=== PATIENT | female | born 2000 | race Caucasian/White ===

== ENCOUNTER 2018-03-30 18:15 | Emergency (ER) | payer OTHER ==
[~2018-03-30] VITALS: Ht 152.4 cm; Wt 105.0 kg
[2018-03-30 18:23] VITALS: BP 126/71; PULSE 93; RESP 24; TEMP 98.3; O2SAT 99
--- NOTE | 2018-03-30 18:43 | PD ---
HPI Chief Complaint: OD/ Ingestion Time Seen by Provider: 18:28 Travel History International Travel<30 days: No Contact w/Intl Traveler<30days: No Traveled to known affect area: No History of Present Illness HPI This is a 18-year-old female with history of migraines and PTSD who presents for evaluation. 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 She reports that she was handling sulfuric acid which is a pH of 0.3. She reports that she used her teeth in order to pull off the pen From her pen. She believes that there was sulfuric acid residue on the pen Because she tasted a sour taste in her mouth. She reports that she rinse it out but she now has mild burning sensation in her throat and mouth. Symptoms of mild to moderate, aggravated by unintentional exposure to sulfuric acid. Denies any hoarse voice , chest pain or shortness of breath, nausea or vomiting. No other complaints. [facility] Social History Alcohol Use: No Tobacco Use: No Allergies-Medications (Allergen,Severity, Reaction): Coded Allergies: amoxicillin (Verified Allergy, Unknown, 03/30/18) Review of Systems Except as stated in HPI: all other systems reviewed are Neg Physical Exam Narrative GENERAL: Well-developed well-nourished female no acute distress SKIN: Warm and dry. HEAD: Atraumatic. Normocephalic. EYES: Pupils equal and round. No scleral icterus. No injection or drainage. ENT: No nasal bleeding or discharge. Mucous membranes pink and moist. NECK: Trachea midline. No JVD. CARDIOVASCULAR: Regular rate and rhythm. No murmur appreciated. RESPIRATORY: No accessory muscle use. Clear to auscultation. Breath sounds equal bilaterally. GASTROINTESTINAL: Abdomen soft, non-tender, nondistended. Hepatic and splenic margins not palpable. NEUROLOGICAL: Awake and alert. No obvious cranial nerve deficits. Motor grossly within normal limits. Normal speech. Data Data Last Documented VS Vital Signs Date Time Temp Pulse Resp B/P (MAP) Pulse Ox O2 Delivery O2 Flow Rate FiO2 03/30/18 18:23 98.3 93 24 126/71 (89) 99 MDM Medical Decision Making Medical Screen Exam Complete: Yes Emergency Medical Condition: Yes Medical Record Reviewed: Yes Differential Diagnosis Oral exposure to acidic substance versus unintentional ingestion of acidic substance versus acid burn Narrative Course Physical examination is reassuring. The patient was given water in order to continue to rinse out her mouth. I did discuss with [facility] feels that the patient can follow-up as an outpatient, likely was a very small exposure and if she has no symptoms she can follow-up with her primary care physician. Diagnosis Primary Impression: Accidental exposure to acid Additional Instructions: Follow-up with primary care physician as needed. Return for any emergent medical conditions. Med/Other Pt SpecificInfo: No Change to Meds Disposition: 01 DISCHARGE HOME Condition: Stable Bryan Collier March 30, 2018 18:43
== END 2018-03-30 19:15 | disposition home or self-care (01) ==
LOC: NEPE 18:15
DX: T54.2X1A Toxic effect of corrosive acids and acid-like substances, accidental (unintentional), initial encounter (principal); F43.10 Post-traumatic stress disorder, unspecified; Z88.0 Allergy status to penicillin
CPT/HCPCS: 99281

== ENCOUNTER 2018-04-19 13:57 | Emergency (ER) | payer OTHER ==
[~2018-04-19] VITALS: Ht 152.4 cm; Wt 110.0 kg
[2018-04-19 14:01] VITALS: BP 151/69; PULSE 91; RESP 16; TEMP 98.9; O2SAT 100
[2018-04-19] MEDS ORDERED: BUPR150XL PO (14:18)
[2018-04-19] MEDS ORDERED: LEXA10TA PO (14:18)
[2018-04-19] MEDS ORDERED: SODIUM CHLOR 0.9% 1000 ML INJ 1,000 ML IV SCH (14:28)
[2018-04-19] MEDS ORDERED: SODIUM CHLORIDE 0.9% FLUSH 10 ML FLUSH IV FLUSH PRN (14:30)
--- NOTE | 2018-04-19 14:33 | PD ---
HPI Chief Complaint: Abdominal Pain Time Seen by Provider: 14:24 Travel History International Travel<30 days: No Contact w/Intl Traveler<30days: No Traveled to known affect area: No History of Present Illness HPI 18-year-old female presents to the emergency department for evaluation of abdominal pain, vomiting, diarrhea. Patient states her symptoms started on Tuesday. She states they are intermittent. She cannot think of any exacerbating or alleviating factors. She states the current pain is 3/10, sharp to the lower abdomen. She reports vomiting and diarrhea as well. She denies any fevers or chills. She denies urinary symptoms. She denies abnormal vaginal discharge. She denies . She denies any previous abdominal surgeries. She does have history of migraines and PTSD. Moderate severity. PFSH Past Medical History Depression: Yes Migraines: Yes ?: Not LMP: DEPO Social History Alcohol Use: No Tobacco Use: No Substance Use: No Allergies-Medications (Allergen,Severity, Reaction): Coded Allergies: amoxicillin (Verified Allergy, Unknown, 04/19/18) Reported Meds & Prescriptions Reported Meds & Active Scripts Active Reported Wellbutrin Xl 24 HR (Bupropion HCl) 150 Mg Tab 150 Mg PO DAILY Lexapro (Escitalopram Oxalate) 10 Mg Tab 10 Mg PO DAILY Review of Systems Except as stated in HPI: all other systems reviewed are Neg Physical Exam Narrative GENERAL: Well-nourished, well-developed female patient, ambulatory. Afebrile. SKIN: Focused skin assessment warm/dry. HEAD: Normocephalic. Atraumatic. EYES: No scleral icterus. No injection or drainage. NECK: Supple, trachea midline. No JVD or lymphadenopathy. CARDIOVASCULAR: Regular rate and rhythm without murmurs, gallops, or rubs. RESPIRATORY: Breath sounds equal bilaterally. No accessory muscle use. Lung sounds are clear to auscultation. GASTROINTESTINAL: Abdomen soft and nondistended. She reports tenderness to palpation over the right lower quadrant and suprapubic region. No rebound tenderness. No guarding. MUSCULOSKELETAL: No cyanosis, or edema. BACK: Nontender without obvious deformity. No CVA tenderness. GENITOURINARY: Normal external genitalia without lesions or erythema. Vaginal vault without blood, brown drainage noted. Cervical os was closed without drainage. No cervical motion tenderness. Uterus nontender and nonenlarged. Bilateral adnexa nontender without masses. This exam was done with RN at bedside. Data Data Last Documented VS Vital Signs Date Time Temp Pulse Resp B/P (MAP) Pulse Ox O2 Delivery O2 Flow Rate FiO2 04/19/18 14:01 98.9 91 16 151/69 (96) 100 Orders Orders Complete Blood Count With Diff (04/19/18 14:28) Comprehensive Metabolic Panel (04/19/18 14:28) Lipase (04/19/18 14:28) Urinalysis - C+S If Indicated (04/19/18 14:28) Ct Abd/Pel W Iv Contrast(Rout) (04/19/18 14:28) Iv Access Insert/Monitor (04/19/18 14:28) Ecg Monitoring (04/19/18 14:28) Oximetry (04/19/18 14:28) Sodium Chlor 0.9% 1000 Ml Inj (Ns 1000 M (04/19/18 14:28) Sodium Chloride 0.9% Flush (Ns Flush) (04/19/18 14:30) Ed Urine Pregnancytest Poc (04/19/18 14:28) Gc And Chlamydia Pcr (04/19/18 14:28) Wet Prep Profile (04/19/18 14:28) Metoclopramide Inj (Reglan Inj) (04/19/18 14:45) Iohexol 350 Inj (Omnipaque 350 Inj) (04/19/18 16:18) Labs Laboratory Tests Test 04/19/18 14:40 04/19/18 16:55 White Blood Count 9.8 TH/MM3 Red Blood Count 4.71 MIL/MM3 Hemoglobin 13.4 GM/DL Hematocrit 39.7 % Mean Corpuscular Volume 84.2 FL Mean Corpuscular Hemoglobin 28.4 PG Mean Corpuscular Hemoglobin Concent 33.8 % Red Cell Distribution Width 13.3 % Platelet Count 302 TH/MM3 Mean Platelet Volume 8.8 FL Neutrophils (%) (Auto) 66.1 % Lymphocytes (%) (Auto) 25.9 % Monocytes (%) (Auto) 7.1 % Eosinophils (%) (Auto) 0.5 % Basophils (%) (Auto) 0.4 % Neutrophils # (Auto) 6.5 TH/MM3 Lymphocytes # (Auto) 2.5 TH/MM3 Monocytes # (Auto) 0.7 TH/MM3 Eosinophils # (Auto) 0.1 TH/MM3 Basophils # (Auto) 0.0 TH/MM3 CBC Comment DIFF FINAL Differential Comment Urine Color YELLOW Urine Turbidity CLEAR Urine pH 7.0 Urine Specific [place] 1.022 Urine Protein TRACE mg/dL Urine Glucose (UA) NEG mg/dL Urine Ketones NEG mg/dL Urine Occult Blood SMALL Urine Nitrite NEG Urine Bilirubin NEG Urine Urobilinogen 2.0 MG/DL Urine Leukocyte Esterase NEG Urine WBC 1 /hpf Urine Squamous Epithelial Cells 4 /hpf Urine Bacteria RARE /hpf Urine Mucus FEW /lpf Microscopic Urinalysis Comment CULT NOT INDICATED Blood Urea Nitrogen 6 MG/DL Creatinine 0.72 MG/DL Random Glucose 76 MG/DL Total Protein 7.5 GM/DL Albumin 3.3 GM/DL Calcium Level 8.6 MG/DL Alkaline Phosphatase 114 U/L Aspartate Amino Transf (AST/SGOT) 19 U/L Alanine Aminotransferase (ALT/SGPT) 26 U/L Total Bilirubin 0.3 MG/DL Sodium Level 141 MEQ/L Potassium Level 3.7 MEQ/L Chloride Level 107 MEQ/L Carbon Dioxide Level 26.1 MEQ/L Anion Gap 8 MEQ/L Estimat Glomerular Filtration Rate 103 ML/MIN Lipase 91 U/L Clue Cells (Wet Prep) NONE SEEN Vaginal Trichomonas (Wet Prep) NONE SEEN Vaginal Yeast (Wet Prep) NONE SEEN MDM Medical Decision Making Medical Screen Exam Complete: Yes Emergency Medical Condition: Yes Medical Record Reviewed: Yes Interpretation(s) Last Impressions Abdomen/Pelvis CT 04/19/18 1428 Signed Impressions: CONCLUSION: 1. Negative for acute process. I do not see inflammatory changes. There is no evidence for obstruction. Differential Diagnosis UTI versus pyelonephritis versus gastroenteritis versus appendicitis versus cervicitis versus ovarian cyst Narrative Course 18-year-old female presents to the emergency department for evaluation of lower abdominal pain, nausea, vomiting, diarrhea since Tuesday, 4 days ago. IV access established. CBC, CMP, lipase, UA, urine test are ordered and pending. Patient gives verbal consent for pelvic exam. Wet prep and swab for chlamydia/gonorrhea will be sent to lab. CT abdomen/pelvis with IV contrast is ordered and pending. Patient is given normal saline 1 L IV bolus, Reglan 10 mg IV. CBC is unremarkable. CMP is unremarkable. Lipase is 91. UA is negative for acute infection. UPT is negative. Wet prep is negative. CT abdomen/pelvis is negative for acute process. Patient will be discharged prescription for Bentyl and Zofran. She is instructed to follow the primary care physician return here for any acute worsening of symptoms. The patient was discharged in stable condition with instructions, including return instructions and follow up instructions. Diagnosis Primary Impression: Gastroenteritis Additional Impression: Abdominal pain Qualified Codes: R10.30 - Lower abdominal pain, unspecified Referrals: Primary Care Physician call for appointment Patient Instructions: Abdominal Pain (ED), General Instructions Departure Forms: Tests/Procedures, Work Release Enter return to work date: Apr 22, 2018 Additional Instructions: Take Bentyl as directed as needed for abdominal cramping. Take Zofran as directed as needed for nausea/vomiting. [place] diet. Follow-up with a primary care physician. Return to the emergency department for any acute worsening of symptoms. Med/Other Pt SpecificInfo: Prescription(s) given Scripts Ondansetron Odt (Ondansetron Odt) 4 Mg Tab 4 MG SL Q6HR Y for Nausea/Vomiting, #16 TAB 0 Refills Prov: Mulu Damon 04/19/18 Dicyclomine (Bentyl) 10 Mg Cap 10 MG PO TID Y for ABDOMINAL CRAMPING, #16 CAP 0 Refills Prov: Mulu Damon 04/19/18 Disposition: 01 DISCHARGE HOME Condition: Stable Mulu Damon April 19, 2018 14:33
[2018-04-19] MEDS ORDERED: METOCLOPRAMIDE HCL 10 MG/2 ML VIAL IV PUSH ONE (14:45)
[2018-04-19 15:21] LABS: BACTERIA, URINE RARE /hpf; BILIRUBIN, URINE NEG (NEG); BLOOD, URINE SMALL (NEG); GLUCOSE,URINE NEG (NEG); KETONE, URINE NEG (NEG); MUCUS URINE FEW /lpf (OCC); NITRITE,URINE NEG (NEG); SQUAMOUS EPITHELIAL CELL URINE 4 /hpf (0-5); URINE COLOR YELLOW (YELLW/STRAW); URINE LEUKOCYTE ESTERASE NEG (NEG)
[2018-04-19 15:22] LABS: AUTOMATED NEUTROPHIL # 6.5 TH/MM3 (1.8-7.7); BASOPHIL % 0.4 % (0.0-2.0); EOSINOPHIL # 0.1 TH/MM3 (0-0.4); EOSINOPHIL % 0.5 % (0.0-4.0); HEMATOCRIT 39.7 % (35.0-46.0); HEMOGLOBIN 13.4 GM/DL (11.6-15.3); LYMPH % 25.9 % (9.0-44.0); LYMPHOCYTE # 2.5 TH/MM3 (1.0-4.8); MEAN CELL VOLUME 84.2 FL (80.0-100.0); MEAN CORPUSCULAR HEMOGLOBIN 28.4 PG (27.0-34.0); MEAN CORPUSCULAR HGB CONC 33.8 % (32.0-36.0); MEAN PLATELET VOLUME 8.8 FL (7.0-11.0); MONO % 7.1 % (0.0-8.0); MONOCYTE # 0.7 TH/MM3 (0-0.9); NEUT % 66.1 % (16.0-70.0); PLATELET COUNT 302 TH/MM3 (150-450); RED BLOOD COUNT 4.71 MIL/MM3 (4.00-5.30); RED CELL DISTRIBUTION WIDTH 13.3 % (11.6-17.2); WHITE BLOOD COUNT 9.8 TH/MM3 (4.0-11.0)
[2018-04-19 15:46] LABS: ALBUMIN 3.3 GM/DL (3.4-5.0); ALT (GPT) 26 U/L (9-42); AST (GOT) 19 U/L (16-38); BICARBONATE 26.1 MEQ/L (21.0-32.0); BLOOD UREA NITROGEN 6 MG/DL (7-18); CALCIUM 8.6 MG/DL (8.5-10.1); CHLORIDE 107 MEQ/L (98-107); CREATININE 0.72 MG/DL (0.50-1.00); GLOMERULAR FILTRATION RATE 103 ML/MIN (>89); GLUCOSE,RANDOM 76 MG/DL (74-106); SODIUM (NA) 141 MEQ/L (136-145)
[2018-04-19 15:47] LABS: ALKALINE PHOSPHATASE 114 U/L (45-117); TOTAL BILIRUBIN ADULT 0.3 MG/DL (0.2-1.0); TOTAL PROTEIN 7.5 GM/DL (6.4-8.2)
[2018-04-19] MEDS ORDERED: IOHEXOL 350 MG/ML 10 ML VIAL (for RAD DIAG) IVCONTRAST ONE (16:18)
--- NOTE | 2018-04-19 16:32 | RADRPT ---
EXAM DATE: 04/19/2018 4:22 PM EDT AGE/SEX: 18 years / Female INDICATIONS: Lower abdominal pain x 3 days. Nausea, vomiting and diarrhea. CLINICAL DATA: This is the patient's initial encounter. Patient reports that signs and symptoms have been present for 3 days and indicates a pain score of 3/10. MEDICAL/SURGICAL HISTORY: None. None. ORAL CONTRAST: No oral contrast ingested. RADIATION DOSE: 16.35 CTDI (mGy) COMPARISON: No prior [place] exams available for comparison. TECHNIQUE: Multiple contiguous axial images were obtained through the abdomen and pelvis following b olus infusion of 95 ml Omnipaque 350 (iohexol) nonionic water-soluble contrast as a single exam dos e. No oral contrast ingested. Using automated exposure control and adjustment of the mA and/or kV ac cording to patient size, the radiation dose was kept as low as reasonably achievable to obtain optima l diagnostic quality images. FINDINGS: Lower Lungs: The visualized lower lungs are clear. Liver: The liver has a homogeneous density without space-occupying lesion. There is no dilation of th e biliary tree. Spleen: Homogeneous density without enlargement. Pancreas: Unremarkable without mass or calcification. Kidneys: Normal in size and shape. No evidence of mass or hydronephrosis. Adrenal Glands: Unremarkable. Aorta: The aorta and proximal iliac vessels are grossly unremarkable without aneurysmal dilation. Bowel/Mesentery: The bowel loops are grossly unremarkable. Scattered diverticuli descending colon wi thout inflammatory changes The cecum and sigmoid colon have a normal configuration. Abdominal Wall: Intact. Retroperitoneum: No evidence of adenopathy in the retrocrural, para-aortic, or deep pelvic regions. Bladder: Contours are smooth. Reproductive Organs: No abnormal masses or calcifications seen. Inguinal: The inguinal region is unremarkable without evidence of adenopathy. Bony Structures: Mild degenerative changes lower lumbar spine and both SI joints. CONCLUSION: 1. Negative for acute process. I do not see inflammatory changes. There is no evidence for obstructi on. Electronically signed by: Vito Thomas MD 04/19/2018 4:31 PM EDT
[2018-04-19] MEDS ORDERED: DICY10 PO (17:43)
[2018-04-19] MEDS ORDERED: ONDA4TAB7 SL (17:43)
[2018-04-19 18:31] VITALS: O2SAT 98
== END 2018-04-19 18:33 | disposition home or self-care (01) ==
LOC: NEPD 13:57
DX: K52.9 Noninfective gastroenteritis and colitis, unspecified (principal); F32.9 Major depressive disorder, single episode, unspecified
CPT/HCPCS: 74177; 80053; 81001; 83690; 84703; 85025; 87210; 87491; 87591; 96361; 96374; 99284; J2765; J7030; Q9967